=== PATIENT | male | born 1985 | race Caucasian/White ===

== ENCOUNTER 2018-12-15 10:38 | Emergency (ER) | payer SELFPAY ==
[2018-12-15 10:44] VITALS: BP 142/96
--- NOTE | 2018-12-15 11:02 | ER Document Report ---
ED General - General Chief Complaint: Toothache Stated Complaint: ABCESS TOOTH Time Seen by Provider: 12/15/18 11:02 Primary Care Provider: YO CHRISTINA DDS [NO LOCAL MD] - Follow up in 1 week TRAVEL OUTSIDE OF THE [place] IN LAST 30 DAYS: No - HPI Notes: 33 year old male to the ED with C/O right sided dental pain. States that he broke his tooth two weeks ago and it was ok, until last night. States now the tooth is painful and that he feels like it is a little swollen. Denies any difficulty breathing, drooling, fevers, chills, - Related Data Allergies/Adverse Reactions: No Known Allergies Allergy (Unverified 12/15/18 10:40) Past Medical History - General Information source: Patient - Social History Smoking Status: Current Every Day Smoker Frequency of alcohol use: None Drug Abuse: None Family History: Reviewed & Not Pertinent Review of Systems - Review of Systems Constitutional: denies: Chills, Fever EENT: See HPI, Dental problem Cardiovascular: denies: Chest pain, Dyspnea, Syncope Respiratory: denies: Cough, Short of breath Gastrointestinal: denies: Abdominal pain, Diarrhea, Nausea, Vomiting Musculoskeletal: No symptoms reported Skin: No symptoms reported Neurological/Psychological: No symptoms reported -: Yes All other systems reviewed and negative Physical Exam - Vital signs Vitals: Temp Pulse Resp BP Pulse Ox 97.8 F 91 16 142/96 H 100 12/15/18 10:43 12/15/18 10:43 12/15/18 10:43 12/15/18 10:43 12/15/18 10:43 Interpretation: Normal - General General appearance: Appears well, Alert In distress: None - HEENT Head: Normocephalic, Atraumatic Eyes: Normal Ears: Normal External canal: Normal Tympanic membrane: Normal Sinus: Normal Nasal: Normal Mouth/Lips: Caries - mulitple dental caries throughout. There is TTP over the right lower teeth with noted several broken teeth. There is TTP along the gum, but no christiane fluctuance. No drooling, no Hayden's angina, no significant facial swelling. Airway is grossly patent Pharynx: Normal. No: Peritonsillar abscess, Retropharyngeal abscess, Tonsillar hypertrophy, Uvular edema, Potential airway comprom. Neck: Normal, Supple. No: Lymphadenopathy, Meningismus - Respiratory Respiratory status: No respiratory distress Chest status: Nontender Breath sounds: Normal Chest palpation: Normal - Cardiovascular Rhythm: Regular Heart sounds: Normal auscultation Murmur: No - Neurological Neuro grossly intact: Yes Cognition: Normal Orientation: AAOx4 [place] Coma Scale Eye Opening: Spontaneous [place] Coma Scale Verbal: Oriented [place] Coma Scale Motor: Obeys Commands [place] Coma Scale Total: 15 Speech: Normal Cranial nerves: Normal. No: Facial palsy, Forehead sparing, Gaze palsy, Sensory deficit, Tongue deviation Cerebellar coordination: Normal Motor strength normal: LUE, RUE, LLE, RLE Sensory: Normal - Psychological Associated symptoms: Normal affect, Normal mood - Skin Skin Temperature: Warm Skin Moisture: Dry Skin Color: Normal Course - Re-evaluation Re-evalutation: Impression: Dental caries, dental pain. Will discharge home with small amount of pain meds, ABx, mouth wash. Have urged close follow up with dentist. Encouraged to return if worsening facial swelling, difficulty breathing, SOB, chest pain. Patient agrees with the plan. - Vital Signs Vital signs: Temp Pulse Resp BP Pulse Ox 97.8 F 91 16 142/96 H 100 12/15/18 10:43 12/15/18 10:43 12/15/18 10:43 12/15/18 10:43 12/15/18 10:43 Discharge - Discharge Clinical Impression: Pain, dental, Dental caries Condition: Stable Disposition: HOME, SELF-CARE Instructions: Toothache ([facility]) Additional Instructions: TAKE MEDICINE PRESCRIBED. FOLLOW UP WITH DENTIST. RETURN IF WORSE. PUSH FLUIDS. Prescriptions: Clindamycin HCl 300 mg PO TID #30 capsule Hydrocodone/Acetaminophen [Godley 5-325 mg Tablet] 1 tab PO Q6H #10 tablet Chlorhexidine Gluconate [Peridex] 15 ml MM TID #420 ml Forms: Return to Work Referrals: YO CHRISTINA DDS [NO LOCAL MD] - Follow up in 1 week
[2018-12-15] MEDS ORDERED: HYDROCODONE/ACETAMINOPHEN 5-325 MG TABLET PO ONE (11:35)
== END 2018-12-15 11:47 | disposition home or self-care (01) ==
LOC: ER 10:38
DX: K02.9 Dental caries, unspecified (principal); K08.89 Other specified disorders of teeth and supporting structures; F17.200 Nicotine dependence, unspecified, uncomplicated
CPT/HCPCS: 99282

== ENCOUNTER 2019-02-04 01:20 | Emergency (ER) | payer SELFPAY ==
[2019-02-04 01:36] VITALS: BP 140/97
[2019-02-04] MEDS ORDERED: AMOXICILLIN TRIHYDRATE 500 MG CAPSULE PO ONE (02:06)
[2019-02-04] MEDS ORDERED: HYDROCODONE/ACETAMINOPHEN 5-325 MG (6 TAB/ER DISP) PO PRN (02:06)
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
== END 2019-02-04 02:20 | disposition home or self-care (01) ==
LOC: ER 01:20
DX: K08.9 Disorder of teeth and supporting structures, unspecified (principal); F17.200 Nicotine dependence, unspecified, uncomplicated
CPT/HCPCS: 99282